=== PATIENT | female | born 1980 ===

== ENCOUNTER 2017-01-29 15:02 | Emergency (ER) | payer BC ==
[2017-01-29 15:08] VITALS: BP 116/70; PULSE 76; RESP 16; TEMP 98.3; O2SAT 100
--- NOTE | 2017-01-29 15:32 | ED PDOC ---
HPI: Female Pain Time Seen by Provider: 01/29/17 15:05 Chief Complaint (Nursing): Female Genitourinary Chief Complaint (Provider): Spotting, 6 weeks History Per: Patient History/Exam Limitations: no limitations Onset/Duration Of Symptoms: Days Current Symptoms Are (Timing): Better Additional Complaint(s): presents at 6 weeks gestation with vaginal bleeding. PT states last night and this morning she saw blood when she was cleaning herself. Pt denies fever/ chills. Pt states she is having suprapubic cramping, more on the right side. PT states she was seen by Dr. Kan last week. Past Medical History Reviewed: Historical Data, Nursing Documentation, Vital Signs Vital Signs: Last Vital Signs Temp 98.3 F 01/29/17 15:04 Pulse 76 01/29/17 15:04 Resp 16 01/29/17 15:04 BP 116/70 01/29/17 15:04 Pulse Ox 100 01/29/17 15:04 - Medical History PMH: No Chronic Diseases - Surgical History Surgical History: No Surg Hx - Family History Family History: States: Unknown Family Hx - Living Arrangements Living Arrangements: With Family - Social History Current smoker - smoking cessation education provided: No - Immunization History Hx Tetanus Toxoid Vaccination: No Hx Influenza Vaccination: No Hx Pneumococcal Vaccination: No - Home Medications Home Medications: Ambulatory Orders Medication Instructions Recorded Nitrofurantoin Macrocrystals 100 mg PO BID #14 cap 11/13/16 [Macrobid] Phenazopyridine HCl [Pyridium] 200 mg PO TID PRN #6 tablet 11/13/16 - Allergies Allergies/Adverse Reactions: Allergies Allergy/AdvReac Type Severity Reaction Status Date / Time No Known Allergies Allergy Verified 01/29/17 15:04 Review of Systems ROS Statement: Except As Marked, All Systems Reviewed And Found Negative Genitourinary Female: Positive for: Vaginal Bleeding, Pelvic Pain Physical Exam - Reviewed Nursing Documentation Reviewed: Yes Vital Signs Reviewed: Yes - Physical Exam Appears: Positive for: Well, Non-toxic, No Acute Distress Head Exam: Positive for: ATRAUMATIC, NORMAL INSPECTION, NORMOCEPHALIC Skin: Positive for: Normal Color, Warm, DRY Eye Exam: Positive for: Normal appearance ENT: Positive for: Normal ENT Inspection Neck: Positive for: Normal, Painless ROM Cardiovascular/Chest: Positive for: Regular Rate, Rhythm Respiratory: Positive for: Normal Breath Sounds. Negative for: Accessory Muscle Use, Respiratory Distress Gastrointestinal/Abdominal: Positive for: Normal Exam, Bowel Sounds, Soft. Negative for: Tenderness Back: Positive for: Normal Inspection Extremity: Positive for: Normal ROM Neurologic/Psych: Positive for: Alert, Oriented - Laboratory Results Result Diagrams: 01/29/17 15:45 01/29/17 15:45 - ECG O2 Sat by Pulse Oximetry: 100 Pulse Ox Interpretation: Normal Medical Decision Making Medical Decision Making: (+) cyst right ovary (+) gestational sac and yoke sac Discussed all results with patient and . F.u in 72 hours. All results given to patient. Disposition - Clinical Impression Clinical Impression: Vaginal bleeding in - Patient ED Disposition Is Patient to be Admitted: No Counseled Patient/Family Regarding: Diagnosis, Need For Followup - Disposition Disposition: Routine/Home Disposition Time: 17:28 Condition: GOOD Additional Instructions: Repeat Beta HcG in 48-72 hours. Instructions: (ED) Print Language: SAUDI ARABIAN
[2017-01-29 15:56] LABS: HEMATOCRIT 39.5 % (34.0-47.0); MEAN CORPUSCULAR HEMOGLOBIN 29.7 pg (27.0-31.0); MEAN CORPUSCULAR HGB CONC 33.3 g/dL (33.0-37.0); RED CELL DISTRIBUTION WIDTH 14.3 % (11.5-14.5); WHITE BLOOD COUNT 9.3 K/uL (4.8-10.8)
[2017-01-29 16:04] LABS: ALB/GLOB RATIO 1.1 (1.0-2.1); ALKALINE PHOSPHATASE 85 U/L (38-126); ALT/SGPT 23 U/L (9-52); AST/SGOT 26 U/L (14-36); BILIRUBIN,TOTAL 0.5 mg/dl (0.2-1.3); BLOOD UREA NITROGEN 13 mg/dl (7-17); CALCIUM 8.5 mg/dL (8.4-10.2); CARBON DIOXIDE 25 mmol/L (22-30); CHLORIDE 104 mmol/L (98-107); GFR AFRICAN-AMERICAN > 60; GLUCOSE,RANDOM 101 mg/dL (65-105); SODIUM 141 mmol/l (132-148); TOTAL PROTEIN 7.7 G/DL (6.3-8.2)
[2017-01-29 16:08] LABS: POTASSIUM 4.4 MMOL/L (3.6-5.0)
--- NOTE | 2017-01-29 17:23 | US ---
Pelvic ultrasound History: Spotting for 6 weeks. According to the emergency room CHEMA Dunne beta HC. Comparison: None. Technique: Transvaginal ultrasonography of the pelvis. Findings: The uterus is anteverted and measures 8.7 x 6.3 x 4.7 centimeters. Along the posterior wall of the uterus there is a hypoechoic mass which is presumed to be a fibroid measuring 1.2 x 1.3 x 1.1 centimeters. In the endometrium, the gestational sac measuring 0.52 centimeters noted. The yolk sac within it measuring 0.19 centimeters is noted. No pole identified. The cervix appears closed and measures approximately 3.2 centimeters. Small nabothian cysts seen in the cervix. No definite cervical abnormality identified. No significant free fluid in the cul-de-sac. The right ovary measures 3.1 x 3 x 2 centimeters. A complex thick walled round structure with surrounding vascularity measuring 1.9 x 1.7 x 2.1 centimeters is noted in the right adnexa. This could represent a complex cyst. Doppler flow seen in the right ovary. The left ovary measures 2.5 x 1.8 x 1.6 centimeters. Doppler flow noted in the left ovary. Impression: Intrauterine gestational sac with yolk sac identified. Mean gestational sac diameter is 0.52 centimeters. The yolk sac measures 0.19 centimeters. No pole identified. Possible complex cyst with peripheral vascularity noted in the right adnexa. Close interval repeat ultrasonography evaluation and correlation with beta HCG levels strongly recommended. Discussed with CHEMA Dunne at approximately 5:20 p.m. on 01/29/2017.
== END 2017-01-29 17:51 | disposition home or self-care (01) ==
LOC: H.ER 15:02
DX: O20.9 Hemorrhage in early pregnancy, unspecified (principal); Z3A.01 Less than 8 weeks gestation of pregnancy

== ENCOUNTER 2018-02-21 10:49 | Emergency (ER) | payer BC ==
[2018-02-21 10:54] VITALS: BMI 33.7
[2018-02-21 10:57] VITALS: BP 100/63; RESP 17; TEMP 98.1; O2SAT 97
--- NOTE | 2018-02-21 12:27 | RAD ---
PROCEDURE: Radiographs of lumbar spine 02/21/2018 HISTORY: Back pain x 2 weeks COMPARISON: No prior. FINDINGS: BONES: No acute compression fractures no retropulsed fragments. Vertebral bodies exhibit normal stature. Vertebral bodies and facets normally aligned. DISC SPACES: Small marginal anterior osteophytes seen the L2-L3 and to a lesser degree L3-L4 levels. Disc space heights maintained. The facets are slightly prominent at the L5-S1 level. OTHER FINDINGS: None. IMPRESSION: No acute fractures. Minor degenerative spondylosis most notably affecting the L2-L3 and L3-L4 levels as above.
--- NOTE | 2018-02-21 13:39 | ED PDOC ---
HPI: Back Time Seen by Provider: 02/21/18 11:14 Chief Complaint (Nursing): Back Pain Chief Complaint (Provider): Back pain History Per: Patient History/Exam Limitations: no limitations Onset/Duration Of Symptoms: Days (x2 weeks) Current Symptoms Are (Timing): Still Present Quality Of Discomfort: "Pain" Previous Symptoms: Back Pain Associated Symptoms: None Additional Complaint(s): Cherie Fournier is a 37 year old female, with a past medical history of sciatica, who presents the emergency department complaining of right sided back pain onset for x2 weeks. Patient reports pain radiates down the right leg. She took ibuprofen 400mg and Tylenol without relief. Patient has not seen her doctor, she usually goes to [place] but recently moved to [place]. She also reports a headache but denies any fever, chills, dysuria, hematuria, nausea, vomit, chest pain, shortness of breath, cough, abdominal pain, bladder or stool incontinence , and weakness of lower extremities. Patient recently gave by x4 months ago. No further medical complaints. PMD: None provided. Past Medical History Reviewed: Historical Data, Nursing Documentation, Vital Signs Vital Signs: Last Vital Signs Temp 98.1 F 02/21/18 10:56 Pulse Resp 17 02/21/18 10:56 BP 100/63 02/21/18 10:56 Pulse Ox 97 02/21/18 10:56 - Medical History PMH: Back Problems (sciatica) - Surgical History Surgical History: (x4 months ago) - Family History Family History: States: Unknown Family Hx - Social History Current smoker - smoking cessation education provided: No Alcohol: None Drugs: Denies - Immunization History Hx Tetanus Toxoid Vaccination: No Hx Influenza Vaccination: No Hx Pneumococcal Vaccination: No - Home Medications Home Medications: Ambulatory Orders Medication Instructions Recorded Acetaminophen [Tylenol 325mg tab] 650 mg PO Q6H PRN #50 tab 02/21/18 Cyclobenzaprine [Cyclobenzaprine 10 mg PO TID PRN #15 tab 02/21/18 HCl] Naproxen [Naprosyn] 500 mg PO BID PRN #20 tablet 02/21/18 - Allergies Allergies/Adverse Reactions: Allergies Allergy/AdvReac Type Severity Reaction Status Date / Time No Known Allergies Allergy Verified 05/07/17 05:23 Review of Systems ROS Statement: Except As Marked, All Systems Reviewed And Found Negative Constitutional: Negative for: Fever, Chills Cardiovascular: Negative for: Chest Pain Respiratory: Negative for: Cough, Shortness of Breath Gastrointestinal: Negative for: Nausea, Vomiting, Abdominal Pain Genitourinary Female: Negative for: Dysuria, Hematuria Musculoskeletal: Positive for: Back Pain (right sided pain, radiates down the right leg. ), Leg Pain (right) Neurological: Positive for: Headache Physical Exam - Reviewed Nursing Documentation Reviewed: Yes Vital Signs Reviewed: Yes - Physical Exam Appears: Positive for: Non-toxic. Negative for: Well (sitting in moderate discomfort from pain) Head Exam: Positive for: ATRAUMATIC, NORMOCEPHALIC Skin: Positive for: Normal Color, Warm, Dry Eye Exam: Positive for: Normal appearance Neck: Positive for: Painless ROM Cardiovascular/Chest: Positive for: Regular Rate, Rhythm. Negative for: Murmur Respiratory: Positive for: Normal Breath Sounds (clear to auscultation ). Negative for: Respiratory Distress Gastrointestinal/Abdominal: Positive for: Normal Exam, Soft. Negative for: Tenderness Back: Positive for: Other (Palpable tenderness along the entire lower throacic lumbar spine in the right. Straight leg raise positive. ) Extremity: Positive for: Normal ROM (all extremities). Negative for: Deformity , Swelling Neurologic/Psych: Positive for: Alert, Oriented. Negative for: Motor/Sensory Deficits - ECG O2 Sat by Pulse Oximetry: 97 (RA) Pulse Ox Interpretation: Normal Medical Decision Making Medical Decision Making: Initial Impression: Right sided back pain w/ hx of sciatica Initial Plan: --Urine --Urine dipstick --Lumbar Spine complete [RAD] --Toradol 60 mg IM --Tylenol 325mg tab 650 mg PO --Valium 5 mg PO --Reevaluation Scribe Attestation: Documented by Hayden Nguyen, acting as a scribe for Roula Hayes MD Provider Scribe Attestation: All medical record entries made by the Scribe were at my direction and personally dictated by me. I have reviewed the chart and agree that the record accurately reflects my personal performance of the history, physical exam, medical decision making, and the department course for this patient. I have also personally directed, reviewed, and agree with the discharge instructions and disposition. 1.30p - patient is feeling better. Will discharge home with meds and [facility]up [facility]. Disposition - Clinical Impression Clinical Impression: Back strain - Patient ED Disposition Is Patient to be Admitted: No Doctor Will See Patient In The: Office Counseled Patient/Family Regarding: Diagnosis, Need For Followup, Rx Given - Disposition Referrals: [facility] [Outside] Disposition: Routine/Home Disposition Time: 13:30 Condition: IMPROVED Prescriptions: Acetaminophen [Tylenol 325mg tab] 650 mg PO Q6H PRN #50 tab PRN Reason: Pain, Mild (1-3) Cyclobenzaprine [Cyclobenzaprine HCl] 10 mg PO TID PRN #15 tab PRN Reason: Pain, Moderate (4-7) Naproxen [Naprosyn] 500 mg PO BID PRN #20 tablet PRN Reason: Pain, Moderate (4-7) Instructions: Muscle Strain (DC) Forms: [employer] (Bahraini) Print Language: NIGERIEN - POA Present On Arrival: None
== END 2018-02-21 14:19 | disposition home or self-care (01) ==
LOC: H.ER 10:49
DX: M54.9 Dorsalgia, unspecified (principal)
CPT/HCPCS: 72114; 81025; 96372; 99283; J1885

== ENCOUNTER 2018-04-18 19:23 | Emergency (ER) | payer BC ==
[2018-04-18 19:44] VITALS: BMI 33.5
[2018-04-18 19:45] VITALS: RESP 16
--- NOTE | 2018-04-18 20:24 | ED PDOC ---
HPI:Nausea, Vomiting, Diarrhea Time Seen by Provider: 04/18/18 20:15 Chief Complaint (Nursing): GI Problem Chief Complaint (Provider): vomiting, diarrhea History Per: Patient, Family History/Exam Limitations: no limitations Onset/Duration Of Symptoms: Days (2), Waxing/Waning Quality Of Discomfort: Cramping Associated Symptoms: Nausea, Vomiting, Diarrhea Additional Complaint(s): 37 y/o female presents for evaluation of vomiting and diarrhea x 2 days. Patient states symptoms started shortly after eating pasta with sauce that was left out in the hot kitchen for a while. Patient reports diffuse abdominal cramping with diarrhea, which continued today with associated 2 episodes of vomiting. Denies fever, chest pain, shortness of breath, palpitations, urinary symptoms, recent travel, sick contacts. Past Medical History Reviewed: Historical Data, Nursing Documentation, Vital Signs Vital Signs: Last Vital Signs Temp 98.3 F 04/18/18 19:45 Pulse 75 04/18/18 19:45 Resp 16 04/18/18 19:45 BP 105/67 04/18/18 19:45 Pulse Ox 98 04/18/18 19:45 - Medical History PMH: Back Problems (sciatica) - Surgical History Surgical History: (x4 months ago) - Family History Family History: States: Unknown Family Hx - Immunization History Hx Tetanus Toxoid Vaccination: No Hx Influenza Vaccination: No Hx Pneumococcal Vaccination: No - Home Medications Home Medications: Ambulatory Orders Medication Instructions Recorded Acetaminophen [Tylenol 325mg tab] 650 mg PO Q6H PRN #50 tab 02/21/18 Cyclobenzaprine [Cyclobenzaprine 10 mg PO TID PRN #15 tab 02/21/18 HCl] Naproxen [Naprosyn] 500 mg PO BID PRN #20 tablet 02/21/18 Dicyclomine [Bentyl] 20 mg PO TID PRN #15 tab 04/18/18 Famotidine [Pepcid] 20 mg PO BID #10 tab 04/18/18 Ondansetron ODT [Zofran ODT] 4 mg PO Q8 PRN #10 odt 04/18/18 - Allergies Allergies/Adverse Reactions: Allergies Allergy/AdvReac Type Severity Reaction Status Date / Time No Known Allergies Allergy Verified 04/18/18 19:42 Review of Systems ROS Statement: Except As Marked, All Systems Reviewed And Found Negative Gastrointestinal: Positive for: Nausea, Vomiting, Abdominal Pain, Diarrhea Physical Exam - Reviewed Nursing Documentation Reviewed: Yes Vital Signs Reviewed: Yes - Physical Exam Appears: Positive for: Well, Non-toxic, No Acute Distress Head Exam: Positive for: ATRAUMATIC, NORMAL INSPECTION, NORMOCEPHALIC Skin: Positive for: Normal Color Eye Exam: Positive for: Normal appearance ENT: Positive for: Normal ENT Inspection Cardiovascular/Chest: Positive for: Regular Rate, Rhythm Respiratory: Positive for: Normal Breath Sounds Gastrointestinal/Abdominal: Positive for: Bowel Sounds, Soft, Tenderness ( diffuse discomfort to palpation). Negative for: Distended, Guarding, Rebound Back: Positive for: Normal Inspection Extremity: Positive for: Normal ROM Neurologic/Psych: Positive for: Alert, Oriented - Laboratory Results Result Diagrams: 04/18/18 21:07 04/18/18 21:07 - ECG O2 Sat by Pulse Oximetry: 98 - Progress ED Course And Treament: labs, urine, Iv fluids, IV zofran, IV pepcid, PO bentyl On re-eval, patient resting comfortably; tolerating PO. States pain resolved Patient/family educated on findings, discharged with rx pepcid, zofran, bentyl Advised fluids, BRAT diet Follow up PMD 2-3 days. Return precautions given Disposition - Clinical Impression Clinical Impression: Gastroenteritis - Patient ED Disposition Is Patient to be Admitted: No Counseled Patient/Family Regarding: Studies Performed, Diagnosis, Need For Followup, Rx Given - Disposition Disposition: Routine/Home Disposition Time: 22:22 Condition: IMPROVED Prescriptions: Dicyclomine [Bentyl] 20 mg PO TID PRN #15 tab PRN Reason: Pain, Mild (1-3) Famotidine [Pepcid] 20 mg PO BID #10 tab Ondansetron ODT [Zofran ODT] 4 mg PO Q8 PRN #10 odt PRN Reason: Nausea/Vomiting Instructions: Viral Gastroenteritis Forms: [employer] (Uzbek) Print Language: LUXEMBOURGISH
[2018-04-18] MEDS ORDERED: Famotidine 20mg/50ml 20 MG/50 ML BAG IVPB ONE (20:52)
[2018-04-18] MEDS: Sodium Chloride 0.9% 1,000 ML IV STA (20:56)
[2018-04-18 21:13] LABS: BASO # 0.1 K/uL (0.0-0.2); BASO % 0.7 % (0.0-2.0); EOS # 0.3 K/uL (0.0-0.7); EOS % 4.2 % (0.0-4.0); LYMPH # 2.3 K/uL (1.0-4.3); MEAN CELL VOLUME 83.7 fl (81.0-99.0); MEAN CORPUSCULAR HEMOGLOBIN 27.5 pg (27.0-31.0); MEAN CORPUSCULAR HGB CONC 32.9 g/dL (33.0-37.0); MEAN PLATELET VOLUME 8.7 fl (7.2-11.7); MONO # 0.8 K/uL (0.0-0.8); MONO % 9.8 % (0.0-10.0); NEUT # 4.5 K/uL (1.8-7.0); NEUT % 56.3 % (50.0-75.0); RBC 4.36 Mil/uL (3.80-5.20); RED CELL DISTRIBUTION WIDTH 16.3 % (11.5-14.5)
[2018-04-18 21:22] LABS: ALT/SGPT 21 U/L (9-52); AST/SGOT 21 U/L (14-36); BLOOD UREA NITROGEN 12 mg/dl (7-17); CALCIUM 8.1 mg/dL (8.4-10.2); GFR AFRICAN-AMERICAN > 60; GFR NON-AFRICAN AMERICAN > 60; LIPASE 65 U/L (23-300)
[2018-04-18 21:23] LABS: SQUAMOUS EPITHIAL 1 /hpf (0-5); URINE BILIRUBIN NEGATIVE (NEGATIVE); URINE BLOOD NEGATIVE (NEGATIVE); URINE CLARITY CLEAR (Clear); URINE COLOR YELLOW (YELLOW); URINE GLUCOSE (UA) NEG (Normal); URINE LEUKOCYTE ESTERASE NEG Leu/uL (Negative); URINE PROTEIN NEGATIVE (NEGATIVE); URINE UROBILINOGEN 0.2-1.0 mg/dL (0.2-1.0)
[2018-04-18 22:43] VITALS: BP 118/63; PULSE 74; TEMP 98.4; O2SAT 99
== END 2018-04-18 22:45 | disposition home or self-care (01) ==
LOC: H.ER 19:23
DX: K52.9 Noninfective gastroenteritis and colitis, unspecified (principal)
CPT/HCPCS: 80053; 81003; 81025; 83690; 85025; 87086; 96361; 96365; 96375; 99284; J2405; J7030

== ENCOUNTER 2018-05-31 17:52 | Emergency (ER) | payer BC ==
[2018-05-31 17:52] VITALS: BMI 33.5
[2018-05-31] MEDS ORDERED: DiphenhydrAMINE 50 mg/ml Inj ONE (19:07)
[2018-05-31] MEDS: Sodium Chloride 0.9% 1,000 ML IV STA (19:27)
[2018-05-31] MEDS: DiphenhydrAMINE 50 mg/ml Inj IVP STA (19:29)
--- NOTE | 2018-05-31 19:41 | ED PDOC ---
HPI: Headache Time Seen by Provider: 05/31/18 18:31 Chief Complaint (Nursing): Headache Chief Complaint (Provider): Headache History Per: Patient History/Exam Limitations: no limitations Onset/Duration Of Symptoms: Days (x7) Current Symptoms Are (Timing): Still Present Additional Complaint(s): 37 y/o female presents to the ED complaining of right sided headache, onset one week ago. Patient states pain is worsening since onset associated with nausea, dizziness/lightheadedness today, and a flashing lights sensation in both eyes. Patient has a history of typically right-sided migraines and states that these are similar but usually come suddenly and are severe and not associated with dizziness. Patient states she was only in the ER once for severe headache. Denies vomiting, focal weakness or numbness, fever, pain on the right sided of neck and stiffness. PMD: Dr. Tessy Kuo in [place] (associated with [facility]) Past Medical History Reviewed: Historical Data, Nursing Documentation, Vital Signs Vital Signs: Last Vital Signs Temp 98.6 F 05/31/18 18:16 Pulse 66 05/31/18 18:16 Resp 16 05/31/18 18:16 BP 113/72 05/31/18 18:16 Pulse Ox 97 05/31/18 18:16 - Medical History PMH: Back Problems (sciatica), Migraine - Surgical History Surgical History: (x2) - Family History Family History: States: No Known Family Hx - Immunization History Hx Tetanus Toxoid Vaccination: No Hx Influenza Vaccination: No Hx Pneumococcal Vaccination: No - Home Medications Home Medications: Ambulatory Orders Medication Instructions Recorded Acetaminophen [Tylenol 325mg tab] 650 mg PO Q6H PRN #50 tab 02/21/18 Cyclobenzaprine [Cyclobenzaprine 10 mg PO TID PRN #15 tab 02/21/18 HCl] Naproxen [Naprosyn] 500 mg PO BID PRN #20 tablet 02/21/18 Dicyclomine [Bentyl] 20 mg PO TID PRN #15 tab 04/18/18 Famotidine [Pepcid] 20 mg PO BID #10 tab 04/18/18 Ondansetron ODT [Zofran ODT] 4 mg PO Q8 PRN #10 odt 04/18/18 Acetaminophen/Butalbital/Caf 1 tab PO TID PRN #20 tab 05/31/18 [Fioricet] Naproxen [Naprosyn] 1 tab PO BID PRN #30 tab 05/31/18 - Allergies Allergies/Adverse Reactions: Allergies Allergy/AdvReac Type Severity Reaction Status Date / Time No Known Allergies Allergy Verified 05/31/18 18:17 Review of Systems ROS Statement: Except As Marked, All Systems Reviewed And Found Negative (as per HPI) Gastrointestinal: Positive for: Nausea. Negative for: Vomiting Musculoskeletal: Negative for: Neck Pain Neurological: Positive for: Headache, Dizziness, Other (Flashing light sensation in both eyes). Negative for: Weakness, Numbness Physical Exam - Reviewed Nursing Documentation Reviewed: Yes Vital Signs Reviewed: Yes - Physical Exam Appears: Positive for: Non-toxic, In Acute Distress (mild, painful) Head Exam: Positive for: ATRAUMATIC, NORMOCEPHALIC Skin: Positive for: Warm, Dry Eye Exam: Positive for: EOMI, PERRL ENT: Negative for: Pharyngeal Erythema, Tonsillar Exudate Neck: Positive for: Normal, Painless ROM (Non-tender) Cardiovascular/Chest: Positive for: Regular Rate, Rhythm. Negative for: Murmur Respiratory: Positive for: Normal Breath Sounds. Negative for: Respiratory Distress Gastrointestinal/Abdominal: Positive for: Soft. Negative for: Tenderness Back: Positive for: Normal Inspection. Negative for: Decreased ROM Extremity: Positive for: Normal ROM. Negative for: Deformity Lymphatic: Negative for: Adenopathy Neurologic/Psych: Positive for: Alert, camp dining room attendant II-XII (intact), Oriented (x3), Mood/ Affect (normal mood/affect), Cerebellar Tests (normal). Negative for: Motor/ Sensory Deficits - Laboratory Results Result Diagrams: 05/31/18 19:37 05/31/18 19:37 - ECG O2 Sat by Pulse Oximetry: 97 (RA) Pulse Ox Interpretation: Normal Medical Decision Making Medical Decision Making: Time: 1852 Impression: Headache Differentials include but not limited to atypical migraines, dehydration, electrolyte abnormality, anemia and brain mass Plan: -- Benadryl 25 mg IVP -- Sodium Chloride IV 999 mls/hr -- Reglan 10 mg IVP -- Tylenol 975 mg PO -- IV Insertion -- Head CT w/o Contrast -- CBC with differentials -- ED Urine Dipstick -- ED Urine -- Thyroid Stimulation -- Phosphorus -- Magnesium -- CMP HEAD CT RESULTS FINDINGS: BRAIN: Unremarkable. No hemorrhage. No significant white matter disease. No edema. VENTRICLES: Unremarkable. No ventriculomegaly. BONES/JOINTS: Unremarkable. No acute fracture. SOFT TISSUES: Unremarkable. SINUSES: Unremarkable as visualized. No acute sinusitis. MASTOID AIR CELLS: Unremarkable as visualized. No mastoid effusion. IMPRESSION: No acute findings. Thank you for allowing us to participate in the care of your patient. Dictated and Authenticated by: Gisela Moreno MD 05/31/2018 7:19 PM Eastern Time ([place] & [place]) Labs unremarkable. 8p On reeval pt feeling much better. Stable for dc with f/u preferred PMD. All questions/concerns answered/addressed. ___ Scribe Attestation: Documented by Barbra Beltran acting as a scribe for Dr. Tena Riley. Provider Scribe Attestation: All medical record entries made by the Scribe were at my direction and personally dictated by me. I have reviewed the chart and agree that the record accurately reflects my personal performance of the history, physical exam, medical decision making, and the department course for this patient. I have also personally directed, reviewed, and agree with the discharge instructions and disposition. Disposition - Clinical Impression Clinical Impression: Acute headache Counseled Patient/Family Regarding: Studies Performed, Diagnosis, Need For Followup, Rx Given - Disposition Referrals: [facility] [Outside] [facility] [Outside] Disposition: Routine/Home Disposition Time: 20:50 Condition: IMPROVED Additional Instructions: FOLLOW UP WITH [facility], OR YOUR PREFERRED PRIMARY PHYSICIAN FOR REEVALUATION TOMORROW TAKE MEDICATIONS PRESCRIBED FOR HEADACHE DRINK PLENTY OF HYDRATING FLUIDS AND REST RETURN TO ER FOR: --INTRACTABLE HEADACHE OR VOMITING --WEAKNESS OR NUMBNESS ON ONE SIDE OF THE BODY --FAINTING OR NEAR FAINTING --ANY OTHER WORRISOME SYMPTOMS IESHA HANCOCK, thank you for letting us take care of you today. Your provider was Tena Riley MD and you were treated for HEADACHE. The emergency medical care you received today was directed at your acute symptoms. If you were prescribed any medication, please fill it and take as directed. It may take several days for your symptoms to resolve. Return to the Emergency Department if your symptoms worsen, do not improve, or if you have any other problems. Please contact your doctor or call one of the physicians/clinics you have been referred to that are listed on the Patient Visit Information form that is included in your discharge packet. Bring any paperwork you were given at discharge with you along with any medications you are taking to your follow up visit. Our treatment cannot replace ongoing medical care by a primary care provider outside of the emergency department. Thank you for allowing the [email or web address] team to be part of your care today. Prescriptions: Acetaminophen/Butalbital/Caf [Fioricet] 1 tab PO TID PRN #20 tab PRN Reason: SEVERE headache Naproxen [Naprosyn] 1 tab PO BID PRN #30 tab PRN Reason: Headache Instructions: Acute Headache (ED) Forms: [employer] ([employer]), [facility] ED School/Work Excuse Print Language: FIJIAN
[2018-05-31 19:44] LABS: BASO # 0.1 K/uL (0.0-0.2); BASO % 0.9 % (0.0-2.0); EOS # 0.2 K/uL (0.0-0.7); EOS % 3.1 % (0.0-4.0); HEMOGLOBIN 13.5 g/dL (12.0-16.0); LYMPH # 2.1 K/uL (1.0-4.3); LYMPH % 25.9 % (20.0-40.0); MEAN CELL VOLUME 83.9 fl (81.0-99.0); MEAN CORPUSCULAR HEMOGLOBIN 27.5 pg (27.0-31.0); MEAN CORPUSCULAR HGB CONC 32.8 g/dL (33.0-37.0); MEAN PLATELET VOLUME 8.7 fl (7.2-11.7); MONO # 0.6 K/uL (0.0-0.8); MONO % 7.6 % (0.0-10.0); NEUT % 62.5 % (50.0-75.0); RBC 4.92 Mil/uL (3.80-5.20); RED CELL DISTRIBUTION WIDTH 14.6 % (11.5-14.5)
[2018-05-31 19:58] LABS: ALB/GLOB RATIO 1.1 (1.0-2.1); ALBUMIN 4.5 g/dL (3.5-5.0); ALT/SGPT 27 U/L (9-52); AST/SGOT 26 U/L (14-36); BLOOD UREA NITROGEN 10 mg/dl (7-17); CALCIUM 9.2 mg/dL (8.4-10.2); GFR AFRICAN-AMERICAN > 60; GFR NON-AFRICAN AMERICAN > 60
[2018-05-31 21:04] VITALS: BP 118/74; PULSE 62; RESP 18; TEMP 98.4
--- NOTE | 2018-06-01 09:29 | CT ---
Date of service: 05/31/2018 PROCEDURE: CT HEAD WITHOUT CONTRAST. HISTORY: headache COMPARISON: None available. TECHNIQUE: Axial computed tomography images were obtained through the head/brain without intravenous contrast. Radiation dose: Total exam DLP = 842.28 mGy-cm. This CT exam was performed using one or more of the following dose reduction techniques: Automated exposure control, adjustment of the mA and/or kV according to patient size, and/or use of iterative reconstruction technique. FINDINGS: HEMORRHAGE: No intracranial hemorrhage. BRAIN: Normal johnson-white matter differentiation and density are appreciated throughout the cerebrum and cerebellum with the brainstem appearing unremarkable as well. There is no mass effect. There is no suspicious extra-axial fluid collection and the midline brain anatomy appears diffusely unremarkable. VENTRICLES: Unremarkable. No hydrocephalus. CALVARIUM: Unremarkable. PARANASAL SINUSES: Unremarkable as visualized. No significant inflammatory changes. MASTOID AIR CELLS: Unremarkable as visualized. No inflammatory changes. OTHER FINDINGS: None. IMPRESSION: Normal CT of the Head.
[2018-06-01 16:36] VITALS: O2SAT 97
== END 2018-05-31 21:03 | disposition home or self-care (01) ==
LOC: H.ER 17:52
DX: R51 Headache (principal)
CPT/HCPCS: 70450; 80053; 81025; 83735; 84100; 84443; 85025; 96374; 96375; 99285; J1200; J2765; J7030

== ENCOUNTER 2018-06-19 19:16 | Emergency (ER) | payer BC ==
[2018-06-19 19:17] VITALS: BMI 33.5
[2018-06-19] MEDS ORDERED: Sodium Chloride 0.9% 1,000 ML IV STA (20:13)
--- NOTE | 2018-06-19 20:44 | ED PDOC ---
HPI: Abdomen Time Seen by Provider: 06/19/18 19:37 Chief Complaint (Nursing): Abdominal Pain Chief Complaint (Provider): Abdominal Pain History Per: Patient History/Exam Limitations: no limitations Onset/Duration Of Symptoms: Days ( x3) Location Of Pain/Discomfort: Diffuse Associated Symptoms: Nausea, Diarrhea. denies: Vomiting Additional Complaint(s): Patient is a 37 y/o female with no significant past medical history, who presents to the ED complaining of abdominal pain with associated diarrhea for the past x3 days. Patient reports the abdominal pain started on Monday, x3 days ago, but it got much worse yesterday evening and describes the pain as diffuse. She states she feels nausea but denies any vomiting; however, she has had x4 episodes of diarrhea with the most recent episode having a large amount of blood. She denies fever, cough, shortness of breath, or any urinary symptoms. PMD: Dr. Clark Past Medical History Reviewed: Historical Data, Nursing Documentation, Vital Signs Vital Signs: Last Vital Signs Temp 98.2 F 06/19/18 23:31 Pulse 81 06/19/18 23:31 Resp 18 06/19/18 23:31 BP 116/71 06/19/18 23:31 Pulse Ox 98 06/19/18 23:58 - Medical History PMH: Back Problems (sciatica), Migraine - Surgical History Surgical History: (x2) - Family History Family History: States: Unknown Family Hx - Social History Current smoker - smoking cessation education provided: No Alcohol: None Drugs: Denies - Immunization History Hx Tetanus Toxoid Vaccination: No Hx Influenza Vaccination: No Hx Pneumococcal Vaccination: No - Home Medications Home Medications: Ambulatory Orders Medication Instructions Recorded Acetaminophen [Tylenol 325mg tab] 650 mg PO Q6H PRN #50 tab 02/21/18 Cyclobenzaprine [Cyclobenzaprine 10 mg PO TID PRN #15 tab 02/21/18 HCl] Naproxen [Naprosyn] 500 mg PO BID PRN #20 tablet 02/21/18 Dicyclomine [Bentyl] 20 mg PO TID PRN #15 tab 04/18/18 Famotidine [Pepcid] 20 mg PO BID #10 tab 04/18/18 Ondansetron ODT [Zofran ODT] 4 mg PO Q8 PRN #10 odt 04/18/18 Acetaminophen/Butalbital/Caf 1 tab PO TID PRN #20 tab 05/31/18 [Fioricet] Naproxen [Naprosyn] 1 tab PO BID PRN #30 tab 05/31/18 Dicyclomine [Bentyl] 20 mg PO Q12 PRN #20 tab 06/19/18 Ondansetron ODT [Zofran ODT] 4 mg PO Q6 PRN #8 odt 06/19/18 - Allergies Allergies/Adverse Reactions: Allergies Allergy/AdvReac Type Severity Reaction Status Date / Time No Known Allergies Allergy Verified 06/19/18 19:26 Review of Systems ROS Statement: Except As Marked, All Systems Reviewed And Found Negative Constitutional: Negative for: Fever Respiratory: Negative for: Cough, Shortness of Breath Gastrointestinal: Positive for: Nausea, Abdominal Pain, Diarrhea (4 total, 1 bloody ). Negative for: Vomiting Genitourinary Female: Negative for: Dysuria, Frequency, Incontinence Physical Exam - Reviewed Nursing Documentation Reviewed: Yes Vital Signs Reviewed: Yes - Physical Exam Appears: Positive for: Non-toxic, No Acute Distress Head Exam: Positive for: ATRAUMATIC, NORMOCEPHALIC Skin: Positive for: Normal Color, Warm, Dry Eye Exam: Positive for: EOMI, Normal appearance, PERRL Neck: Positive for: Normal, Painless ROM Cardiovascular/Chest: Positive for: Regular Rate, Rhythm. Negative for: Murmur Respiratory: Positive for: Normal Breath Sounds. Negative for: Respiratory Distress Gastrointestinal/Abdominal: Positive for: Tenderness (diffuse) Extremity: Positive for: Normal ROM. Negative for: Pedal Edema, Deformity Neurologic/Psych: Positive for: Alert, Oriented. Negative for: Motor/Sensory Deficits - Laboratory Results Result Diagrams: 06/19/18 20:40 06/19/18 20:40 - ECG O2 Sat by Pulse Oximetry: 98 (RA) Pulse Ox Interpretation: Normal Medical Decision Making Medical Decision Making: Time: 20:08 Impression: 37 y/o female with abdominal pain and bloody diarrhea Initial Plans: --CMP --Lipase --CBC w/ diff --Bentyl --IV fluids --Zofran --CT Abdomen and Pelvis Time: 2330 --Upon provider reevaluation, patient is medically stable, reports markable improvement and requires no further treatment in the ED at this time. Patient will be discharged home. Counseling was provided and all questions were answered regarding diagnosis. There is agreement to discharge plan. Return if symptoms persist or worsen. Clinical Impression: Gastroenteritis Scribe Attestation: Documented by Garrick Gutierrez, acting as a scribe for Juan M Eliozndo MD Provider Scribe Attestation: All medical record entries made by the Scribe were at my direction and personally dictated by me. I have reviewed the chart and agree that the record accurately reflects my personal performance of the history, physical exam, medical decision making, and the department course for this patient. I have also personally directed, reviewed, and agree with the discharge instructions and disposition. Disposition - Clinical Impression Clinical Impression: Gastroenteritis - Patient ED Disposition Is Patient to be Admitted: No Counseled Patient/Family Regarding: Studies Performed, Diagnosis, Need For Followup, Rx Given - Disposition Disposition: Routine/Home Disposition Time: 23:31 Condition: IMPROVED Prescriptions: Dicyclomine [Bentyl] 20 mg PO Q12 PRN #20 tab PRN Reason: abdominal pain/diarrhea Ondansetron ODT [Zofran ODT] 4 mg PO Q6 PRN #8 odt PRN Reason: Nausea/Vomiting Instructions: Gastroenteritis (ED) Forms: [employer] (Thai) Print Language: WELSH
[2018-06-19 20:51] LABS: BASO % 0.6 % (0.0-2.0); EOS # 0.3 K/uL (0.0-0.7); EOS % 3.1 % (0.0-4.0); HEMOGLOBIN 12.4 g/dL (12.0-16.0); LYMPH # 2.2 K/uL (1.0-4.3); MEAN CELL VOLUME 85.4 fl (81.0-99.0); MEAN CORPUSCULAR HEMOGLOBIN 28.2 pg (27.0-31.0); MEAN PLATELET VOLUME 9.2 fl (7.2-11.7); MONO # 0.8 K/uL (0.0-0.8); MONO % 9.4 % (0.0-10.0); NEUT % 60.9 % (50.0-75.0); NRBC % 0.1 % (0.0-0.0); RBC 4.41 Mil/uL (3.80-5.20); RED CELL DISTRIBUTION WIDTH 15.1 % (11.5-14.5); WHITE BLOOD COUNT 8.3 K/uL (4.8-10.8)
[2018-06-19 21:15] LABS: ALB/GLOB RATIO 1.1 (1.0-2.1); ALT/SGPT 24 U/L (9-52); AST/SGOT 21 U/L (14-36); BLOOD UREA NITROGEN 12 mg/dl (7-17); CALCIUM 8.4 mg/dL (8.4-10.2); GFR NON-AFRICAN AMERICAN > 60; LIPASE 103 U/L (23-300)
[2018-06-19] MEDS ORDERED: Sodium Chloride 0.9% 50 ML IV ONE (22:10)
[2018-06-19] MEDS ORDERED: Iohexol 300 100 ML IJ ONE (22:10)
[2018-06-19 23:32] VITALS: BP 116/71; PULSE 81; RESP 18; TEMP 98.2
[2018-06-19 23:58] VITALS: O2SAT 98
--- NOTE | 2018-06-20 15:06 | CT ---
Date of service: 06/19/2018 PROCEDURE: CT Abdomen and Pelvis with contrast HISTORY: abdominal pain/diarrhea COMPARISON: None. TECHNIQUE: CT scan of the abdomen and pelvis was performed after administration of intravenous contrast. Oral contrast was not administered. Coronal and sagittal reformatted images were obtained. Contrast dose: 95 mL Omnipaque 300 Radiation dose: Total exam DLP = 798.53 mGy-cm. This CT exam was performed using one or more of the following dose reduction techniques: Automated exposure control, adjustment of the mA and/or kV according to patient size, and/or use of iterative reconstruction technique. FINDINGS: LOWER THORAX: The visualized lungs are clear. LIVER: Mild hepatomegaly and fatty liver. No gross lesion or ductal dilatation. GALLBLADDER AND BILE DUCTS: No calcified gallstones. PANCREAS: Normal in size with homogeneous enhancement le. No gross lesion or ductal dilatation. SPLEEN: Normal in size and appearance. ADRENALS: No discrete nodule. KIDNEYS AND URETERS: Normal in size with homogeneous enhancement. No hydronephrosis. No solid mass. VASCULATURE: Unremarkable. No aortic aneurysm. BOWEL: Unremarkable. No obstruction. No gross mural thickening. APPENDIX: Normal appendix. PERITONEUM: No free fluid. No free air. LYMPH NODES: No enlarged lymph nodes. BLADDER: Grossly normal in appearance. REPRODUCTIVE: The uterus is normal in size. BONES: No acute fracture. Within normal limits for the patient's age. OTHER FINDINGS: There is a small sliding hiatal hernia. IMPRESSION: No acute abdominal or pelvic abnormality. Mild hepatomegaly and hepatic steatosis. A preliminary report was provided by [email or web address].
== END 2018-06-19 23:30 | disposition home or self-care (01) ==
LOC: H.ER 19:16
DX: K52.9 Noninfective gastroenteritis and colitis, unspecified (principal); K76.0 Fatty (change of) liver, not elsewhere classified
CPT/HCPCS: 74177; 80053; 81025; 83690; 85025; 96374; 99284; J2405; J7030; Q9967

== ENCOUNTER 2018-07-11 03:05 | Emergency (ER) | payer BC ==
[2018-07-11 03:05] VITALS: BMI 33.5
[2018-07-11 03:31] VITALS: RESP 16
[2018-07-11] MEDS ORDERED: Sodium Chloride 0.9% 1,000 ML IV STA (03:46)
[2018-07-11] MEDS ORDERED: DiphenhydrAMINE 50 mg/ml Inj IV STA (04:09)
[2018-07-11 04:20] LABS: BASO % 0.6 % (0.0-2.0); EOS # 0.1 K/uL (0.0-0.7); HEMOGLOBIN 13.9 g/dL (12.0-16.0); LYMPH # 0.8 K/uL (1.0-4.3); LYMPH % 11.3 % (20.0-40.0); MEAN CELL VOLUME 84.5 fl (81.0-99.0); MEAN CORPUSCULAR HEMOGLOBIN 29.2 pg (27.0-31.0); MEAN CORPUSCULAR HGB CONC 34.5 g/dL (33.0-37.0); MEAN PLATELET VOLUME 8.5 fl (7.2-11.7); MONO # 0.6 K/uL (0.0-0.8); MONO % 8.2 % (0.0-10.0); NEUT # 5.3 K/uL (1.8-7.0); NEUT % 78.9 % (50.0-75.0); NRBC % 0.2 % (0.0-0.0); RBC 4.75 Mil/uL (3.80-5.20); RED CELL DISTRIBUTION WIDTH 15.1 % (11.5-14.5); WHITE BLOOD COUNT 6.7 K/uL (4.8-10.8)
[2018-07-11 04:27] LABS: ALB/GLOB RATIO 1.1 (1.0-2.1); ALBUMIN 4.4 g/dL (3.5-5.0); ALT/SGPT 25 U/L (9-52); AST/SGOT 25 U/L (14-36); BLOOD UREA NITROGEN 11 mg/dl (7-17); CALCIUM 9.2 mg/dL (8.4-10.2); GFR NON-AFRICAN AMERICAN > 60
--- NOTE | 2018-07-11 04:35 | ED PDOC ---
HPI: Abdomen Time Seen by Provider: 07/11/18 03:24 Chief Complaint (Nursing): Fever Chief Complaint (Provider): Fever History Per: Patient History/Exam Limitations: no limitations Onset/Duration Of Symptoms: Hrs Current Symptoms Are (Timing): Still Present Associated Symptoms: Fever, Other (headache) Additional Complaint(s): Cherie Fournier is a 37 year old female with no significant past medical history who is presenting to the ED for evaluation of fever with associated abdominal pain and headaches onset last night. Patient also complains of malaise and abdominal discomfort. She also states that she had discolored urine, the color pink. Patient offers no other medical complaints at this time. PMD: Marixa Clark Past Medical History Reviewed: Historical Data, Nursing Documentation, Vital Signs Vital Signs: Last Vital Signs Temp 101.1 F H 07/11/18 04:21 Pulse 101 H 07/11/18 03:25 Resp 16 07/11/18 03:25 BP 119/52 L 07/11/18 03:25 Pulse Ox 98 07/11/18 04:37 - Medical History PMH: Back Problems (sciatica), Hypothyroidism, Migraine - Surgical History Surgical History: (x2) - Family History Family History: States: Unknown Family Hx - Social History Current smoker - smoking cessation education provided: No Alcohol: None Drugs: Denies - Immunization History Hx Tetanus Toxoid Vaccination: No Hx Influenza Vaccination: No Hx Pneumococcal Vaccination: No - Home Medications Home Medications: Ambulatory Orders Medication Instructions Recorded Acetaminophen [Tylenol 325mg tab] 650 mg PO Q6H PRN #50 tab 02/21/18 Cyclobenzaprine [Cyclobenzaprine 10 mg PO TID PRN #15 tab 02/21/18 HCl] Naproxen [Naprosyn] 500 mg PO BID PRN #20 tablet 02/21/18 Dicyclomine [Bentyl] 20 mg PO TID PRN #15 tab 04/18/18 Famotidine [Pepcid] 20 mg PO BID #10 tab 04/18/18 Ondansetron ODT [Zofran ODT] 4 mg PO Q8 PRN #10 odt 04/18/18 Acetaminophen/Butalbital/Caf 1 tab PO TID PRN #20 tab 05/31/18 [Fioricet] Naproxen [Naprosyn] 1 tab PO BID PRN #30 tab 05/31/18 Dicyclomine [Bentyl] 20 mg PO Q12 PRN #20 tab 06/19/18 Ondansetron ODT [Zofran ODT] 4 mg PO Q6 PRN #8 odt 06/19/18 - Allergies Allergies/Adverse Reactions: Allergies Allergy/AdvReac Type Severity Reaction Status Date / Time No Known Allergies Allergy Verified 07/11/18 03:20 Review of Systems ROS Statement: Except As Marked, All Systems Reviewed And Found Negative Constitutional: Positive for: Fever, Malaise Gastrointestinal: Positive for: Abdominal Pain Neurological: Positive for: Headache Physical Exam - Reviewed Nursing Documentation Reviewed: Yes Vital Signs Reviewed: Yes - Physical Exam Appears: Positive for: Non-toxic, No Acute Distress, Uncomfortable Head Exam: Positive for: ATRAUMATIC, NORMAL INSPECTION, NORMOCEPHALIC Skin: Positive for: Normal Color, Warm (febrile) Eye Exam: Positive for: Normal appearance, EOMI, PERRL. Negative for: Other ( photophobia) ENT: Positive for: Normal ENT Inspection Neck: Positive for: Normal, Painless ROM, Supple Cardiovascular/Chest: Positive for: Tachycardia. Negative for: Murmur Respiratory: Positive for: Normal Breath Sounds. Negative for: Respiratory Distress Gastrointestinal/Abdominal: Positive for: Normal Exam, Soft. Negative for: Tenderness Back: Positive for: Normal Inspection. Negative for: L CVA Tenderness, R CVA Tenderness, Vertebral Tenderness Extremity: Positive for: Normal ROM. Negative for: Deformity, Swelling Neurologic/Psych: Positive for: Alert, Oriented. Negative for: Motor/Sensory Deficits - Laboratory Results Result Diagrams: 07/11/18 04:05 07/11/18 04:05 - ECG O2 Sat by Pulse Oximetry: 98 (RA) Pulse Ox Interpretation: Normal Medical Decision Making Medical Decision Making: Time: 4:09 Impression: 37 year old female with febrile illness Plan: --CMP --Lact Acid, Plasma --ED Urine --ED Urine Dipstick --CBC --Benadryl 50 mg IV --IV Fluids --Reglan 10 mg IVPB --Tylenol 975 mg PO --Blood Culture --Influenza A B --Urinalysis 5:45 Patient reports marked improvement in symptoms. Labs were reviewed with no clinically significant abnormalities. Upon provider evaluation patient is medically stable, and requires no further treatment in the ED at this time. Patient will be discharged home. Counseling was provided and all questions were answered regarding diagnosis and need for follow up with PMD. There is agreement to discharge plan. Return if symptoms persist or worsen. Scribe Attestation: Documented by Iwona Thompson, acting as a scribe for Juan M Elizondo MD. Provider Scribe Attestation: All medical record entries made by the Scribe were at my direction and personally dictated by me. I have reviewed the chart and agree that the record accurately reflects my personal performance of the history, physical exam, medical decision making, and the department course for this patient. I have also personally directed, reviewed, and agree with the discharge instructions and disposition. Disposition - Clinical Impression Clinical Impression: Viral syndrome - Patient ED Disposition Is Patient to be Admitted: No - Disposition Referrals: Marixa Clark MD [Primary Care Provider] - Disposition: Routine/Home Disposition Time: 05:45 Condition: IMPROVED Instructions: Viral Syndrome (DC) Forms: [employer] (Vietnamese) Print Language: LAO
[2018-07-11 04:39] LABS: SQUAMOUS EPITHIAL 1 /hpf (0-5); URINE BILIRUBIN NEGATIVE (NEGATIVE); URINE BLOOD NEGATIVE (NEGATIVE); URINE CLARITY CLEAR (Clear); URINE COLOR YELLOW (YELLOW); URINE GLUCOSE (UA) NEG (Normal); URINE LEUKOCYTE ESTERASE NEG Leu/uL (Negative); URINE PROTEIN NEGATIVE (NEGATIVE); URINE UROBILINOGEN 0.2-1.0 mg/dL (0.2-1.0)
[2018-07-11 05:46] VITALS: BP 106/57; PULSE 84; TEMP 98.5
[2018-07-11 05:47] VITALS: O2SAT 98
== END 2018-07-11 06:05 | disposition home or self-care (01) ==
LOC: H.ER 03:05
DX: B34.9 Viral infection, unspecified (principal); E03.9 Hypothyroidism, unspecified
CPT/HCPCS: 80053; 81003; 81025; 83605; 85025; 87040; 87804; 96365; 99285; J1200; J2765; J7030

== ENCOUNTER 2018-09-03 18:19 | Emergency (ER) | payer BC ==
[2018-09-03 18:20] VITALS: BMI 33.5
[2018-09-03 18:45] VITALS: RESP 16; TEMP 98.1
[2018-09-03] MEDS ORDERED: Lactated Ringer's 1,000 ML IV STA (19:45)
[2018-09-03 21:04] LABS: BASO # 0.1 K/uL (0.0-0.2); BASO % 0.9 % (0.0-2.0); EOS # 0.4 K/uL (0.0-0.7); EOS % 4.6 % (0.0-4.0); HEMOGLOBIN 13.2 g/dL (12.0-16.0); LYMPH # 2.4 K/uL (1.0-4.3); LYMPH % 28.4 % (20.0-40.0); MEAN CELL VOLUME 84.4 fl (81.0-99.0); MEAN CORPUSCULAR HEMOGLOBIN 27.7 pg (27.0-31.0); MEAN CORPUSCULAR HGB CONC 32.9 g/dL (33.0-37.0); MEAN PLATELET VOLUME 8.5 fl (7.2-11.7); MONO # 0.7 K/uL (0.0-0.8); MONO % 8.3 % (0.0-10.0); NEUT # 4.8 K/uL (1.8-7.0); NEUT % 57.8 % (50.0-75.0); NRBC % 0.1 % (0.0-0.0); RBC 4.75 Mil/uL (3.80-5.20); RED CELL DISTRIBUTION WIDTH 15.2 % (11.5-14.5); WHITE BLOOD COUNT 8.3 K/uL (4.8-10.8)
--- NOTE | 2018-09-03 21:07 | ED PDOC ---
HPI: Abdomen Time Seen by Provider: 09/03/18 19:26 Chief Complaint (Nursing): Abdominal Pain Chief Complaint (Provider): Abdominal Pain History Per: Patient Onset/Duration Of Symptoms: Other (x2.5 weeks) Current Symptoms Are (Timing): Still Present Location Of Pain/Discomfort: LUQ, LLQ Associated Symptoms: Nausea Additional Complaint(s): 37 year old female presents to the ED complaining of lower abdominal pain for 2.5 weeks which has worsened over the last 2 days and is associated with nausea. Patient reports a feeling of acid in the chest and mouth and poor appetite. She states she had 2 episodes of diarrhea today. Patient was seen at [facility] today and was advised to come to the ER for further evaluation. Last period was a week ago which was abnormal because it last only 2 days with cramping and minimal bleeding. Denies urinary symptoms, vaginal bleeding, vaginal discharge, fever, or chills. PMD: Dr. Clark Past Medical History Reviewed: Historical Data, Nursing Documentation, Vital Signs Vital Signs: Last Vital Signs Temp 98.1 F 09/03/18 18:42 Pulse 84 09/03/18 18:42 Resp 16 09/03/18 18:42 BP 105/66 09/03/18 18:42 Pulse Ox 98 09/03/18 18:42 - Medical History PMH: Back Problems (sciatica), Hypothyroidism, Migraine - Surgical History Surgical History: (x2) - Family History Family History: States: Other Other Family History: Thyroid disease - Social History Current smoker - smoking cessation education provided: No Alcohol: None Drugs: Denies - Immunization History Hx Tetanus Toxoid Vaccination: No Hx Influenza Vaccination: No Hx Pneumococcal Vaccination: No - Home Medications Home Medications: Ambulatory Orders Medication Instructions Recorded Acetaminophen [Tylenol 325mg tab] 650 mg PO Q6H PRN #50 tab 02/21/18 Cyclobenzaprine [Cyclobenzaprine 10 mg PO TID PRN #15 tab 02/21/18 HCl] RX: Naproxen [Naprosyn] 500 mg PO BID PRN #20 tablet 02/21/18 Dicyclomine [Bentyl] 20 mg PO TID PRN #15 tab 04/18/18 Famotidine [Pepcid] 20 mg PO BID #10 tab 04/18/18 Ondansetron ODT [Zofran ODT] 4 mg PO Q8 PRN #10 odt 04/18/18 Acetaminophen/Butalbital/Caf 1 tab PO TID PRN #20 tab 05/31/18 [Fioricet] RX: Naproxen [Naprosyn] 1 tab PO BID PRN #30 tab 05/31/18 Dicyclomine [Bentyl] 20 mg PO Q12 PRN #20 tab 06/19/18 Ondansetron ODT [Zofran ODT] 4 mg PO Q6 PRN #8 odt 06/19/18 Famotidine [Pepcid] 20 mg PO DAILY PRN #10 tab 09/04/18 - Allergies Allergies/Adverse Reactions: Allergies Allergy/AdvReac Type Severity Reaction Status Date / Time No Known Allergies Allergy Verified 09/03/18 18:42 Review of Systems ROS Statement: Except As Marked, All Systems Reviewed And Found Negative Constitutional: Negative for: Fever, Chills Gastrointestinal: Positive for: Nausea, Abdominal Pain, Diarrhea Genitourinary Female: Negative for: Dysuria, Hematuria, Vaginal Discharge, Vaginal Bleeding Physical Exam - Reviewed Nursing Documentation Reviewed: Yes Vital Signs Reviewed: Yes - Physical Exam Appears: Positive for: Non-toxic, In Acute Distress (Mild painful distress) Head Exam: Positive for: ATRAUMATIC, NORMOCEPHALIC Skin: Positive for: Warm, Dry Eye Exam: Positive for: EOMI, PERRL ENT: Negative for: Pharyngeal Erythema, Tonsillar Exudate Neck: Positive for: Painless ROM, Supple Cardiovascular/Chest: Positive for: Regular Rate, Rhythm. Negative for: Murmur Respiratory: Positive for: Normal Breath Sounds. Negative for: Respiratory Distress Gastrointestinal/Abdominal: Positive for: Soft, Tenderness (suprapubic and bilateral lower quadrants), Other ((-) Brooks's sign, (+) McBurney's point tenderness; no obturator, psoas, rovsing). Negative for: Mass, Guarding, Rebound Back: Positive for: Normal Inspection. Negative for: Decreased ROM Extremity: Positive for: Normal ROM. Negative for: Deformity Lymphatic: Negative for: Adenopathy Neurologic/Psych: Positive for: Alert. Negative for: Motor/Sensory Deficits - Laboratory Results Result Diagrams: 09/03/18 21:01 09/03/18 21:01 - ECG O2 Sat by Pulse Oximetry: 98 (RA) Pulse Ox Interpretation: Normal Medical Decision Making Medical Decision Making: Initial Impression: Lower abdominal pain Differential includes but not limited to fibroid, , ovarian cyst, cystitis, colitis, diverticulitis Initial Plan: --Beta HCG --CMP --ED urine dipstick --ED urine --CBC --Lactated Ringers 1000mL IV --Zofran 4mg IV [address] Salcedo, pending US and CT results. ----- Scribe Attestation: Documented by Pritesh Velasquez acting as a scribe for Tena Riley MD. Provider Scribe Attestation: All medical record entries made by the Scribe were at my direction and personally dictated by me. I have reviewed the chart and agree that the record accurately reflects my personal performance of the history, physical exam, medical decision making, and the department course for this patient. I have also personally directed, reviewed, and agree with the discharge instructions and d isposition. Disposition - Clinical Impression Clinical Impression: Abdominal pain - Disposition Disposition: Transfer of Care Disposition Time: 00:00 Condition: IMPROVED Prescriptions: Famotidine [Pepcid] 20 mg PO DAILY PRN #10 tab PRN Reason: Heartburn Forms: [employer] (Belarusian) Print Language: PERSIAN
[2018-09-03 21:13] LABS: ALB/GLOB RATIO 1.1 (1.0-2.1); ALBUMIN 4.3 g/dL (3.5-5.0); ALT/SGPT 17 U/L (9-52); AST/SGOT 21 U/L (14-36); BLOOD UREA NITROGEN 10 mg/dl (7-17); CALCIUM 8.5 mg/dL (8.4-10.2); GFR NON-AFRICAN AMERICAN > 60
[2018-09-03] MEDS ORDERED: Iohexol 300 100 ML IJ ONE (22:59)
[2018-09-03] MEDS ORDERED: Sodium Chloride 0.9% 50 ML IV ONE (22:59)
--- NOTE | 2018-09-04 00:06 | ED PDOC ---
- Laboratory Results Result Diagrams: 09/03/18 21:01 09/03/18 21:01 - ECG O2 Sat by Pulse Oximetry: 98 (RA) Pulse Ox Interpretation: Normal Medical Decision Making Medical Decision Makin Patient endorsed to me by Dr. Riley, pending US and CT results. 1153 Transvaginal US Findings Uterus Anteverted. Measures 8.24 x 5.85 x 4.56 cm. Normal in size and appearance. No fibroid or other mass lesion seen. Endometrium Measures 1.59 mm in diameter. Unremarkable. Cervix No cervical abnormality identified. Right ovary Measures 2.08 x 1.94 x 1.35 cm. Normal flow. Right ovarian cyst measuring 0.85 x 0.97 x 0.95 cm. Left ovary Measures 2.84 x 1.70 x 2.17 cm. No solid mass. Normal flow. Free fluid No significant free fluid noted. Other Findings None. Impression Right ovarian cyst. Otherwise, unremarkable study. 1204 CT abdomen/pelvis FINDINGS: LUNG BASES: The lung bases appear clear. No pleural effusions are seen. LIVER: Unremarkable. GALLBLADDER AND BILE DUCTS: The gallbladder appears within normal limits. No radioopaque gallstones are seen. No biliary ductal dilatation is evident. PANCREAS: Unremarkable. SPLEEN: Unremarkable. ADRENAL GLANDS: Unremarkable. KIDNEYS, URETERS, AND BLADDER: The kidneys appear within normal limits. There is no hydronephrosis or hydroureter. No urinary calculi are seen. STOMACH AND BOWEL: Thick walled fluid filled duodenum and loops of jejunum as well as ileum compatible with enteritis. Infectious and inflammatory etiologies are co nsidered. APPENDIX: No evidence of acute appendicitis on CT examination. PERITONEUM: No free fluid. No free air. LYMPH NODES: No lymphadenopathy is evident. VASCULATURE: No evidence of abdominal aortic aneurysm. BONES: No aggressive appearing osseous lesion. No acute osseous pathology evident. IMPRESSION: Enteritis. Infectious and inflammatory etiologies are considered. 0057 Patient is tolerating PO and requesting a prescription of Pepcid ,stable for discharge and will follow up with her doctor. also instructed to follow up w GI doctor as well. pt well appearing, comfortable. stable for dc Scribe Attestation: Documented by Pavithra Wihtlock, acting as a scribe for Lovell MD. Provider Scribe Attestation: All medical record entries made by the Scribe were at my direction and personally dictated by me. I have reviewed the chart and agree that the record accurately reflects my personal performance of the history, physical exam, medical decision making, and the department course for this patient. I have also personally directed, reviewed, and agree with the discharge instructions and disposition. Disposition - Clinical Impression Clinical Impression: Enteritis, Ovarian cyst - POA Present On Arrival: None - Disposition Referrals: [facility] [Outside] Timothy Dunlap MD, PhD [Staff Provider] - Disposition: Routine/Home Disposition Time: 00:50 Condition: IMPROVED Additional Instructions: follow up with your primary doctor dr morin in 1-2 days return to the ED with any worsening or concerning symptoms drink plenty of fluids Prescriptions: Famotidine [Pepcid] 20 mg PO DAILY PRN #10 tab PRN Reason: Heartburn Instructions: Ovarian Cysts Forms: [employer] (Palauan) Print Language: YAKUT
[2018-09-04 00:49] VITALS: BP 100/52; PULSE 82
[2018-09-04 01:01] VITALS: O2SAT 98
--- NOTE | 2018-09-04 07:54 | CT ---
Date of service: 09/03/2018 PROCEDURE: CT Abdomen and Pelvis with contrast HISTORY: lower abd pain COMPARISON: Abdomen and pelvis CT with contrast 06/19/2018. TECHNIQUE: Following the intravenous administration of iodinated contrast material, a CT examination of the abdomen and pelvis performed from the domes of the diaphragms to the symphysis pubis with reformatted datasets provided in axial, sagittal and coronal planes. Oral contrast was not administered as per referring physician request. Coronal and sagittal reformats were generated. contrast dose: Omnipaque 300, 95 cc Radiation dose: Total exam DLP = 802.55 mGy-cm. This CT exam was performed using one or more of the following dose reduction techniques: Automated exposure control, adjustment of the mA and/or kV according to patient size, and/or use of iterative reconstruction technique. FINDINGS: LOWER THORAX: Trace right basilar dependent atelectasis identified. Small hiatal hernia appears stable. LIVER: Borderline hepatomegaly is appreciated. Diminished attenuation throughout the liver suggests hepatic steatosis once again. GALLBLADDER AND BILE DUCTS: Unremarkable. PANCREAS: Unremarkable. No gross lesion or ductal dilatation. SPLEEN: Unremarkable. ADRENALS: Unremarkable. No mass. KIDNEYS AND URETERS: Unremarkable. No hydronephrosis. No solid mass. VASCULATURE: Unremarkable. No aortic aneurysm. No aortic atherosclerotic calcification or mural plaque present. BOWEL: Generally stable appearing abdomen pelvis CT examination with borderline hepatomegaly and hepatic steatosis reiterated. No acute abdominal findings appreciable including unenhanced bowel appearance overall. Discordant preliminary report from [facility], 09/04/2018-unremarkable appearing bowel by my interpretation. APPENDIX: Normal appendix. PERITONEUM: Unremarkable. No free fluid. No free air. LYMPH NODES: Unremarkable. No enlarged lymph nodes. BLADDER: Unremarkable. REPRODUCTIVE: Unremarkable. BONES: No acute fracture. OTHER FINDINGS: None. IMPRESSION: Unremarkable contrast enhanced CT of the abdomen and pelvis.
--- NOTE | 2018-09-04 11:19 | US ---
Date of service: 09/03/2018 HISTORY: Pelvic pain COMPARISON: None available. TECHNIQUE: Transvaginal pelvic ultrasound was performed. FINDINGS: UTERUS: Measures 8.2 x 5.8 x 4.5 cm. Anteverted, normal in size and appearance. No fibroid or other mass lesion seen. ENDOMETRIUM: Measures 15 mm in diameter. The central endometrial echo complex is normal in appearance.. CERVIX: No cervical abnormality identified. RIGHT OVARY: Measures 2.0 x 1.9 x 1.3 cm. No solid mass. Normal flow. There is a 8 x 10 x 10 mm dominant follicle/cyst. LEFT OVARY: Measures 2.8 x 1.7 x 2.1 cm. No solid mass. Normal flow. FREE FLUID: No significant free fluid noted. OTHER FINDINGS: None. IMPRESSION: Unremarkable pelvic ultrasound. A preliminary report was provided by [facility].
== END 2018-09-04 01:10 | disposition home or self-care (01) ==
LOC: H.ER 18:19
DX: K52.9 Noninfective gastroenteritis and colitis, unspecified (principal); N83.201 Unspecified ovarian cyst, right side; E03.9 Hypothyroidism, unspecified
CPT/HCPCS: 74177; 76830; 80053; 81025; 84702; 85025; 96374; 99284; J2405; J7120; Q9967

== ENCOUNTER 2018-10-11 20:09 | Emergency (ER) | payer BC ==
[2018-10-11 20:09] VITALS: BMI 33.5
[2018-10-11 20:43] VITALS: O2SAT 99
--- NOTE | 2018-10-11 21:16 | ED PDOC ---
HPI: Female Pain Time Seen by Provider: 10/11/18 20:46 Chief Complaint (Nursing): Female Genitourinary Chief Complaint (Provider): ; vaginal bleeding History Per: Patient, Family () History/Exam Limitations: no limitations Onset/Duration Of Symptoms: Hrs (6) Current Symptoms Are (Timing): Still Present Quality Of Discomfort: Cramping Additional Complaint(s): 37 y/o female, approximately 7 weeks gestation, presents for evaluation of vaginal spotting with cramping x 7 hours. Patient also reports diarrhea today. Denies fever, nausea/vomiting, cough, chest pain, shortness of breath, palpitations, urinary symptoms. Abnormal Vaginal Bleeding: Yes Last Menstral Period: 08/16/18 : 3 Para: 2 Miscarriage: 0 Past Medical History Reviewed: Historical Data, Nursing Documentation, Vital Signs Vital Signs: Last Vital Signs Temp 98.3 F 10/11/18 20:40 Pulse 75 10/11/18 20:40 Resp 16 10/11/18 20:40 BP 116/69 10/11/18 20:40 Pulse Ox 99 10/11/18 20:40 - Medical History PMH: Back Problems (sciatica), Hypothyroidism, Migraine - Surgical History Surgical History: (x2) - Family History Family History: States: Unknown Family Hx - Immunization History Hx Tetanus Toxoid Vaccination: No Hx Influenza Vaccination: No Hx Pneumococcal Vaccination: No - Home Medications Home Medications: Ambulatory Orders Medication Instructions Recorded Acetaminophen [Tylenol 325mg tab] 650 mg PO Q6H PRN #50 tab 02/21/18 Cyclobenzaprine [Cyclobenzaprine 10 mg PO TID PRN #15 tab 02/21/18 HCl] Naproxen [Naprosyn] 500 mg PO BID PRN #20 tablet 02/21/18 Dicyclomine [Bentyl] 20 mg PO TID PRN #15 tab 04/18/18 Famotidine [Pepcid] 20 mg PO BID #10 tab 04/18/18 Ondansetron ODT [Zofran ODT] 4 mg PO Q8 PRN #10 odt 04/18/18 Acetaminophen/Butalbital/Caf 1 tab PO TID PRN #20 tab 05/31/18 [Fioricet] Naproxen [Naprosyn] 1 tab PO BID PRN #30 tab 05/31/18 Dicyclomine [Bentyl] 20 mg PO Q12 PRN #20 tab 06/19/18 Ondansetron ODT [Zofran ODT] 4 mg PO Q6 PRN #8 odt 06/19/18 Famotidine [Pepcid] 20 mg PO DAILY PRN #10 tab 09/04/18 - Allergies Allergies/Adverse Reactions: Allergies Allergy/AdvReac Type Severity Reaction Status Date / Time No Known Allergies Allergy Verified 10/11/18 20:40 Review of Systems ROS Statement: Except As Marked, All Systems Reviewed And Found Negative Gastrointestinal: Positive for: Diarrhea Genitourinary Female: Positive for: Vaginal Bleeding, Pelvic Pain Physical Exam - Reviewed Nursing Documentation Reviewed: Yes Vital Signs Reviewed: Yes - Physical Exam Appears: Positive for: Well, Non-toxic, No Acute Distress Head Exam: Positive for: ATRAUMATIC, NORMAL INSPECTION, NORMOCEPHALIC Skin: Positive for: Normal Color Eye Exam: Positive for: Normal appearance ENT: Positive for: Normal ENT Inspection Cardiovascular/Chest: Positive for: Regular Rate, Rhythm Respiratory: Positive for: Normal Breath Sounds Gastrointestinal/Abdominal: Positive for: Bowel Sounds, Soft, Tenderness (suprapubic) Pelvic Exam: Positive for: External Exam Normal, No Cerv. 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 Negative for: Active Bleeding Back: Positive for: Normal Inspection Extremity: Positive for: Normal ROM Neurologic/Psych: Positive for: Alert, Oriented (x3) - Laboratory Results Result Diagrams: 10/11/18 21:50 10/11/18 21:50 - ECG O2 Sat by Pulse Oximetry: 99 - Progress ED Course And Treament: -cbc -cmp -beta hcg -upreg -udip -OB TV u/s Procedure OB Transvaginal Ultrasound History Spotting. Comparison None available. Findings Uterus Single Live intrauterine gestation. CRL measures 1.0 equivalent to 7 weeks 0 days gestation Gestational sac diameter is 2.5 cm, equivalent to 7 weeks 1 day gestation. Yolk sac is seen. age (Ultrasound estimated): 7 weeks 1 day (+/- 3 days). Heart rate: 159 bpm. Farzana-gestational hemorrhage: None. Uterus measures 8.4 x 6.0 x 6.8 cm. Anteverted. No mass Cervix Long and closed. Measures 4.6 cm. No cervical abnormality seen. Right Ovary Measures 2.4 x 1.2 x 2.2 cm. Right ovarian cyst/follicle measuring 0.8 x 0.7 x 0.7 cm. No solid mass. Normal flow. Left Ovary Measures 2.9 x 1.8 x 2.3 cm. Cyst measures 1.3 x 1.2 x 1.5 cm. No solid mass. Normal flow. Free Fluid None. Other Findings None. Impression Single live intrauterine gestation 7 weeks 1 day. Heart rate 159 beats per minute. Right ovarian cyst/follicle. Left ovarian cyst. Patient educated on findings, discharged with instructions to follow up with lace paper machine operator within 2-3 days Advised fluids, BRAT diet. Return precautions given Disposition - Clinical Impression Clinical Impression: Vaginal bleeding in , Diarrhea - Patient ED Disposition Is Patient to be Admitted: No Counseled Patient/Family Regarding: Studies Performed, Diagnosis, Need For Followup - Disposition Disposition: Routine/Home Disposition Time: 00:48 Condition: IMPROVED Instructions: Diarrhea in Adolescents and Adults, Bleeding With Forms: [facility] (Liberian) Print Language: ALBANIAN
[2018-10-11 22:03] LABS: BASO % 0.4 % (0.0-2.0); EOS # 0.1 K/uL (0.0-0.7); EOS % 1.6 % (0.0-4.0); LYMPH # 2.2 K/uL (1.0-4.3); LYMPH % 24.3 % (20.0-40.0); MEAN CORPUSCULAR HEMOGLOBIN 28.6 pg (27.0-31.0); MEAN CORPUSCULAR HGB CONC 33.6 g/dL (33.0-37.0); MEAN PLATELET VOLUME 8.4 fl (7.2-11.7); MONO # 0.8 K/uL (0.0-0.8); MONO % 8.2 % (0.0-10.0); NEUT % 65.5 % (50.0-75.0); NRBC % 0.1 % (0.0-0.0); RBC 4.56 Mil/uL (3.80-5.20); RED CELL DISTRIBUTION WIDTH 14.9 % (11.5-14.5); WHITE BLOOD COUNT 9.1 K/uL (4.8-10.8)
[2018-10-11 22:12] LABS: ALB/GLOB RATIO 1.1 (1.0-2.1); ALBUMIN 4.2 g/dL (3.5-5.0); ALT/SGPT 27 U/L (9-52); AST/SGOT 23 U/L (14-36); BLOOD UREA NITROGEN 9 mg/dl (7-17); CALCIUM 8.7 mg/dL (8.4-10.2); GFR NON-AFRICAN AMERICAN > 60
[2018-10-12 01:05] VITALS: BP 110/61; PULSE 78; RESP 18; TEMP 98.4
--- NOTE | 2018-10-12 10:27 | US ---
Date of service: 10/11/2018 PROCEDURE: First trimester ultrasound HISTORY: pelvic pain, bleeding COMPARISON: 09/03/2018 pelvic ultrasound. Summary of findings on the comparison examination: Unremarkable pelvic ultrasound. TECHNIQUE: Standard protocol for this study/examination. FINDINGS: LMP: 08/18/2018 Prior examinations from the current : None TECHNIQUE: Real-time 2D imaging, duplex and color Doppler. FINDINGS: Cardiac activity: Present Rate: 155 BPM Measurements: [place] rump length: 0.96 cm Gestational age based on CRL 7 weeks Gestational age 7 weeks 1 day based on gestational sac measurement 2.45 cm Gestational age derived from LMP: 7 weeks 5 days NEERU based on LMP: 05/25/2019 NEERU based on biometry: 05/29/2019. Gestational concordance documented. Yolk sac identified Cervix: No Cervical abnormalities: Negative examination for cervical dilatation or effacement. Closed cervix measuring 4.57 cm Subchorionic hemorrhage: None UTERUS: 6.0 x 6.8 x 8.4 cm. ADNEXA: Right: 1.2 x 2.2 x 2.4 cm. Subcentimeter cyst normal Doppler arterial waveform documented. Left: 1.8 x 2.5 x 2.9 cm. Cyst, likely corpus luteum cyst 1.2 x 1.3 x 1.5 cm normal Doppler arterial waveform documented Fluid in the cul-de-sac: None IMPRESSION: Seven weeks 1 day live intrauterine gestation. Gestational concordance documented. Concordant results (preliminary interpretation) provided by [employer] [facility]. Procedure Completed: 22:18. Preliminary Report: Dictated and Authenticated: 23:53. Final Interpretation: 10:23. October 11, 2018
== END 2018-10-12 01:04 | disposition home or self-care (01) ==
LOC: H.ER 20:09
DX: O20.9 Hemorrhage in early pregnancy, unspecified (principal); N83.201 Unspecified ovarian cyst, right side; N83.202 Unspecified ovarian cyst, left side; O34.81 Maternal care for other abnormalities of pelvic organs, first trimester; E03.9 Hypothyroidism, unspecified; Z3A.01 Less than 8 weeks gestation of pregnancy

== ENCOUNTER 2018-11-16 17:31 | Observation (INO) | payer BC ==
[2018-11-16 17:31] VITALS: BMI 33.5
--- NOTE | 2018-11-16 18:29 | ED PDOC ---
HPI: Abdomen Time Seen by Provider: 11/16/18 18:11 Chief Complaint (Nursing): Abdominal Pain Chief Complaint (Provider): abdominal pain History Per: Patient, Family () History/Exam Limitations: no limitations Onset/Duration Of Symptoms: Hrs (this morning) Outside of [place] travel?: No Current Symptoms Are (Timing): Still Present Location Of Pain/Discomfort: RLQ, Suprapubic Associated Symptoms: Chills, Nausea, Diarrhea, Loss Of Appetite. denies: Fever, Vomiting, Urinary Symptoms Exacerbating Factors: None Alleviating Factors: None Last Bowel Movement: Today Additional Complaint(s): 37 y/o 14 week female who presents with abdominal pain, nausea and diarrhea since this morning. Pt states that she woke up this morning and upon walking began having lower abdominal pain. She developed watery diarrhea and has had several bouts of diarrhea today. She has also had nausea but has been taking Bonjesta for anti-nausea during so no vomiting. + chills but denies fever, night sweats, dizziness, SHAH, body aches, recent travel outside the country. Her only abdominal surgery has been a prior . Past Medical History Reviewed: Historical Data, Nursing Documentation, Vital Signs Vital Signs: Last Vital Signs Temp 98.8 F 11/16/18 18:04 Pulse 74 11/16/18 18:04 Resp 19 11/16/18 18:04 BP 103/65 11/16/18 18:04 Pulse Ox 96 11/16/18 18:04 - Medical History PMH: Back Problems (sciatica), Hypothyroidism, Migraine - Surgical History Surgical History: (x2) - Family History Family History: States: Unknown Family Hx - Immunization History Hx Tetanus Toxoid Vaccination: No Hx Influenza Vaccination: No Hx Pneumococcal Vaccination: No - Home Medications Home Medications: Ambulatory Orders Medication Instructions Recorded Acetaminophen [Tylenol 325mg tab] 650 mg PO Q6H PRN #50 tab 02/21/18 Cyclobenzaprine [Cyclobenzaprine 10 mg PO TID PRN #15 tab 02/21/18 HCl] Naproxen [Naprosyn] 500 mg PO BID PRN #20 tablet 02/21/18 Dicyclomine [Bentyl] 20 mg PO TID PRN #15 tab 04/18/18 Famotidine [Pepcid] 20 mg PO BID #10 tab 04/18/18 Ondansetron ODT [Zofran ODT] 4 mg PO Q8 PRN #10 odt 04/18/18 Acetaminophen/Butalbital/Caf 1 tab PO TID PRN #20 tab 05/31/18 [Fioricet] Naproxen [Naprosyn] 1 tab PO BID PRN #30 tab 05/31/18 Dicyclomine [Bentyl] 20 mg PO Q12 PRN #20 tab 06/19/18 Ondansetron ODT [Zofran ODT] 4 mg PO Q6 PRN #8 odt 06/19/18 Famotidine [Pepcid] 20 mg PO DAILY PRN #10 tab 09/04/18 - Allergies Allergies/Adverse Reactions: Allergies Allergy/AdvReac Type Severity Reaction Status Date / Time No Known Allergies Allergy Verified 11/16/18 18:07 Physical Exam - Reviewed Nursing Documentation Reviewed: Yes Vital Signs Reviewed: Yes - Physical Exam Appears: Positive for: Uncomfortable Head Exam: Positive for: ATRAUMATIC Skin: Positive for: Normal Color ENT: Positive for: Normal ENT Inspection Neck: Positive for: Normal Cardiovascular/Chest: Positive for: Regular Rate, Rhythm Respiratory: Positive for: Normal Breath Sounds Gastrointestinal/Abdominal: Positive for: Tenderness (RLQ tenderness and guarding on palpation as well as suprapubic tenderness. Mild LLQ tenderness. ), Guarding. Negative for: Distended, Rebound - Laboratory Results Result Diagrams: 11/16/18 19:20 11/16/18 19:20 - ECG O2 Sat by Pulse Oximetry: 96 Medical Decision Making Medical Decision Making: CBC, CMP Abd U/S to evaluate for possible appendicitis U/A Pepcid 20mg IV x 1 Surgery consult Disposition - Clinical Impression Clinical Impression: Abdominal pain affecting - Patient ED Disposition Is Patient to be Admitted: Transfer of Care ([facility] [place]) - Disposition Disposition: Transfer of Care Disposition Time: 20:05 Condition: FAIR Forms: [facility] (Georgian)
[2018-11-16 20:01] LABS: BASO % 0.4 % (0.0-2.0); EOS # 0.2 K/uL (0.0-0.7); HEMOGLOBIN 12.4 g/dL (12.0-16.0); LYMPH # 2.1 K/uL (1.0-4.3); LYMPH % 23.9 % (20.0-40.0); MEAN CELL VOLUME 87.5 fl (81.0-99.0); MEAN CORPUSCULAR HEMOGLOBIN 28.6 pg (27.0-31.0); MEAN CORPUSCULAR HGB CONC 32.7 g/dL (33.0-37.0); MONO # 0.8 K/uL (0.0-0.8); MONO % 9.5 % (0.0-10.0); NEUT # 5.7 K/uL (1.8-7.0); NEUT % 64.2 % (50.0-75.0); NRBC % 0.1 % (0.0-0.0); RBC 4.34 Mil/uL (3.80-5.20); RED CELL DISTRIBUTION WIDTH 15.3 % (11.5-14.5); WHITE BLOOD COUNT 8.9 K/uL (4.8-10.8)
[2018-11-16 20:08] LABS: ALBUMIN 3.8 g/dL (3.5-5.0); ALT/SGPT 17 U/L (9-52); AST/SGOT 21 U/L (14-36); BLOOD UREA NITROGEN 7 mg/dl (7-17); CALCIUM 9.4 mg/dL (8.4-10.2); GFR NON-AFRICAN AMERICAN > 60
[2018-11-16 20:12] LABS: SQUAMOUS EPITHIAL 7 /hpf (0-5); URINE BACTERIA OCC (<OCC); URINE BILIRUBIN NEGATIVE (NEGATIVE); URINE BLOOD NEGATIVE (NEGATIVE); URINE CLARITY CLOUDY (Clear); URINE COLOR YELLOW (YELLOW); URINE GLUCOSE (UA) NEG (NEGATIVE); URINE LEUKOCYTE ESTERASE NEG Leu/uL (Negative); URINE PROTEIN 30 mg/dL (NEGATIVE); URINE UROBILINOGEN 0.2-1.0 mg/dL (0.2-1.0)
--- NOTE | 2018-11-16 20:37 | CP.PCM.CON ---
History of Present Illness - History of Present Illness History of Present Illness: SURGERY NOTE FOR DR. HOLLEY Reason: right lower quadrant pain, 14 weeks , r/o appendicitis 37F presents with abdominal pain. Patient states pain started in the right lower quadrant. Pain started two days ago and started getting worse after food (ice cream). After the pain she had diarrhea *3. Current the pain is a 3/10. She associated the pain with nausea, but no vomiting. She denies fevers or chills. PMH: denies PSH: *2 Social: Denies tobacco, alcohol, illicit drug use Allergies: NKDA Past Patient History - Infectious Disease Hx of Infectious Diseases: None - Past Social History Smoking Status: Never Smoked - NEUROLOGICAL Hx Migraine: Yes - ENDOCRINE/METABOLIC Hx Hypothyroidism: Yes - PSYCHIATRIC Hx Substance Use: No - SURGICAL HISTORY Hx Surgeries: Yes Hx Section: Yes (x2) - ANESTHESIA Hx Anesthesia: Yes Hx Anesthesia Reactions: No Meds Allergies/Adverse Reactions: Allergies Allergy/AdvReac Type Severity Reaction Status Date / Time No Known Allergies Allergy Verified 11/16/18 18:07 Physical Exam - Constitutional Appears: Non-toxic, No Acute Distress - Eye Exam Eye Exam: EOMI, PERRL - ENT Exam ENT Exam: Mucous Membranes Moist - Respiratory Exam Respiratory Exam: Clear to Auscultation Bilateral, NORMAL BREATHING PATTERN - Cardiovascular Exam Cardiovascular Exam: REGULAR RHYTHM, +S1, +S2 - GI/Abdominal Exam GI & Abdominal Exam: Soft, Tenderness (mildly tender in RLQ). absent: Distended, Firm, Guarding, Rebound, Rigid Additional comments: Gravid uterus fundus palpable 3cm above symphysis - Extremities Exam Extremities exam: Negative for: pedal edema, tenderness - Neurological Exam Neurological exam: Alert, Oriented x3 - Skin Skin Exam: Dry, Intact, Normal Color, Warm Results - Vital Signs Recent Vital Signs: Last Vital Signs Temp 98.8 F 11/16/18 18:04 Pulse 74 11/16/18 18:04 Resp 19 11/16/18 18:04 BP 103/65 11/16/18 18:04 Pulse Ox 96 11/16/18 20:15 - Labs Result Diagrams: 11/16/18 19:20 11/16/18 19:20 Labs: Laboratory Results - last 24 hr 01/18/19 01/18/19 01/18/19 19:20 19:20 19:20 WBC 8.9 RBC 4.34 Hgb 12.4 Hct 38.0 MCV 87.5 D MCH 28.6 MCHC 32.7 L RDW 15.3 H Plt Count 266 MPV 9.0 Neut % (Auto) 64.2 Lymph % (Auto) 23.9 [place] % (Auto) 9.5 Eos % (Auto) 2.0 Baso % (Auto) 0.4 Neut # (Auto) 5.7 Lymph # (Auto) 2.1 [place] # (Auto) 0.8 Eos # (Auto) 0.2 Baso # (Auto) 0.0 Sodium 136 Potassium 4.0 Chloride 105 Carbon Dioxide 24 Anion Gap 11 BUN 7 Creatinine 0.5 L Est GFR ( Amer) > 60 Est GFR (Non-Af Amer) > 60 Random Glucose 92 Calcium 9.4 Total Bilirubin 0.3 AST 21 ALT 17 Alkaline Phosphatase 79 Total Protein 7.7 Albumin 3.8 Globulin 3.9 Albumin/Globulin Ratio 1.0 Urine Color Yellow Urine Clarity Cloudy Urine pH 6.0 Ur Specific [place] 1.024 Urine Protein 30 Urine Glucose (UA) Neg Urine Ketones Negative Urine Blood Negative Urine Nitrate Negative Urine Bilirubin Negative Urine Urobilinogen 0.2-1.0 Ur Leukocyte Esterase Neg Urine RBC (Auto) 3 Urine Microscopic WBC 1 Ur Squamous Epith Cells 7 H Urine Bacteria Occ H Assessment & Plan - Assessment and Plan (Free Text) Assessment: 37F 14 weeks with abdominal pain Unlikely appendicitis, clinically Plan: - Observation - Pending ultrasound to evaluate appendix - Rec pelvic US - Rec OBGYN consult - Hold off on antibiotics - Diet pending OBGYN eval Further recs discuss with Dr. Fanny Rivera, PGY3
--- NOTE | 2018-11-16 21:30 | ED PDOC ---
- Laboratory Results Result Diagrams: 11/16/18 19:20 11/16/18 19:20 Lab Results: Total Bilirubin 0.3 mg/dl (0.2-1.3) 11/16/18 19:20 AST 21 U/L (14-36) 11/16/18 19:20 ALT 17 U/L (9-52) 11/16/18 19:20 Alkaline Phosphatase 79 U/L (38-126) 11/16/18 19:20 Total Protein 7.7 G/DL (6.3-8.2) 11/16/18 19:20 Albumin 3.8 g/dL (3.5-5.0) 11/16/18 19:20 Globulin 3.9 gm/dL (2.2-3.9) 11/16/18 19:20 Albumin/Globulin Ratio 1.0 (1.0-2.1) 11/16/18 19:20 Urine Color Yellow (YELLOW) 11/16/18 19:20 Urine Clarity Cloudy (Clear) 11/16/18 19:20 Urine pH 6.0 (5.0-8.0) 11/16/18 19:20 Ur Specific [place] 1.024 (1.003-1.030) 11/16/18 19:20 Urine Protein 30 mg/dL (NEGATIVE) 11/16/18 19:20 Urine Glucose (UA) Neg mg/dL (NEGATIVE) 11/16/18 19:20 Urine Ketones Negative mg/dL (NEGATIVE) 11/16/18 19:20 Urine Blood Negative (NEGATIVE) 11/16/18 19:20 Urine Nitrate Negative (NEGATIVE) 11/16/18 19:20 Urine Bilirubin Negative (NEGATIVE) 11/16/18 19:20 Urine Urobilinogen 0.2-1.0 mg/dL (0.2-1.0) 11/16/18 19:20 Ur Leukocyte Esterase Neg [place]/uL (Negative) 11/16/18 19:20 Urine RBC (Auto) 3 /hpf (0-3) 11/16/18 19:20 Urine Microscopic WBC 1 /hpf (0-5) 11/16/18 19:20 Ur Squamous Epith Cells 7 /hpf (0-5) H 11/16/18 19:20 Urine Bacteria Occ (<OCC) H 11/16/18 19:20 - ECG O2 Sat by Pulse Oximetry: 96 - Progress ED Course And Treament: 1999 Signed out to me pending US results and surgical consult. 2100 On my initial evaluation, pt. in no distress. Abd soft and non-tender. No CVA tenderness b/l. Denies vaginal bleeding. [address] Fournier, surgical technologist, who evaluated pt. in ED then spoke with Dr. Barry who agrees with care and requests OBGYN consult. Also recommends TVUS. As per Dr. Fournier no abx is to be given at this time. 2119 Case d/w Dr. Mariscal, OBGYN financial professional, who agrees with plan and care. Does not require BHCG. 2314 Abd US: no evidence of appendicitis but appendicitis cannot be r/o OB US: SLIUP at 13 weeks 5 days Results d/w Dr. Fournier who spoke with Dr. Barry and wants pt to be admitted and for them to be on consult. Will observe and determine if MRI is required. Results d/w Dr. Mariscal who states pt. is to be admitted to medicine financial professional and they will be on consult. Pt. and informed of plan who both agree to plan. All questions answered. Disposition - Clinical Impression Clinical Impression: Abdominal pain affecting , RLQ abdominal pain - POA Present On Arrival: None - Disposition Disposition: AGAINST MEDICAL ADVICE Disposition Time: 00:33 Condition: FAIR Against Medical Advice - AMA Patient Left Against Medical Advice: The patient declines admission to the hospital and wishes to leave the Emergency Department. This action is against my medical advice. This decision was made with informed refusal. The patient was told that admission to the hospital is necessary. Explanation of the reasons why were discussed. The risks of leaving were explained to the patient and include, but are not limited to, worsening of known or currently unknown conditions, permanent disabi lity and from undiagnosed or untreated conditions. The patient has the capacity to make this informed decision and understands my explanation of the current medical problem and risks of leaving. The patient voluntarily accepts these risks and signed an AMA form documenting our conversation. The patient was given the opportunity to ask questions and reconsider. The patient was encouraged to return to the Emergency Department at any time for further care.
[2018-11-17] MEDS ORDERED: Lactated Ringer's 1,000 ML IV SCH (00:15)
[2018-11-17 01:24] VITALS: BP 108/68; PULSE 70; RESP 18; TEMP 98.2
--- NOTE | 2018-11-17 09:14 | US ---
Date of service: 11/16/2018 HISTORY: RLQ pain, 14wks COMPARISON: None. TECHNIQUE: Sonographic evaluation of the right lower quadrant of the abdomen. FINDINGS: Sonographic evaluation of the right lower quadrant demonstrates normal peristalsing loops of bowel. The appendix is not visualized. IMPRESSION: Nonvisualization of the appendix. Acute appendicitis can neither be confirmed nor excluded.
--- NOTE | 2018-11-17 09:20 | US ---
Date of service: 11/16/2018 PROCEDURE: OB Pelvic Ultrasound HISTORY: RLQ pain COMPARISON: Pelvic ultrasound dated 10/11/2018. FINDINGS: UTERUS: BPD: 2.2 cm compatible with estimated gestational age of 13 weeks, 4 days HC: 8.3 cm compatible with estimated gestational age of 13 weeks, 4 days AC: 7.2 cm compatible with estimated gestational age of 13 weeks, 5 days FL: 1.1 cm compatible with estimated gestational age of 13 weeks, 3 days Heart rate: 150 bpm. age (Ultrasound estimated): 13 weeks, 4 days Farzana-gestational hemorrhage: None. Date of delivery (Ultrasound estimated) : 05/20/2019 CERVIX: Measures 3.0 cm. Long and closed. No cervical abnormality seen. RIGHT OVARY: Not visualized LEFT OVARY: Not visualized FREE FLUID: None. OTHER FINDINGS: None. IMPRESSION: Single live intrauterine gestation with average ultrasound age of 13 weeks, 4 days. heart rate 150 beats per minute. Cervix long and closed.
[2018-11-18 22:54] VITALS: O2SAT 96
== END 2018-11-17 01:05 | disposition left against medical advice (07) ==
LOC: H.ER 17:31 → H.ERHOLD 23:37
PROVIDERS: ADMIT Family Medicine; ATTEND Family Medicine
DX: R10.31 Right lower quadrant pain (principal); M54.30 Sciatica, unspecified side; E03.9 Hypothyroidism, unspecified; Z33.1 Pregnant state, incidental
CPT/HCPCS: 76705; 76815; 80053; 81003; 85025; 87086; 96374; 99283; G0378